=== PATIENT | male | born 1975 | race Hispanic/Latino ===

== ENCOUNTER 2025-05-20 13:34 | Inpatient (IN) | payer SELFPAY ==
[~2025-05-20] VITALS: Ht 167.6 cm; Wt 67.4 kg
[2025-05-20] VITALS (14 sets, daily range): BP systolic 105–141; BP diastolic 28–84; PULSE 54–68; RESP 11–20; TEMP 97.3–98; O2SAT 100
[2025-05-20] MEDS ORDERED: IOHEXOL 350 MG/ML 100ML INFUS..BTL IV ONE (13:43)
[2025-05-20] MEDS ORDERED: LIDOCAINE HCL 400MG/20ML VIAL ONE (13:43)
[2025-05-20] MEDS ORDERED: HEParin-NS 1,000 UNIT/500 ML 1,000 ML IV ONE (13:43)
[2025-05-20] MEDS ORDERED: NITROGLYCERIN 50MG VIAL ONE (13:44)
[2025-05-20] MEDS ORDERED: MIDAZOLAM HCL 1 MG/ML 2ML VIAL ONE (13:57)
--- NOTE | 2025-05-20 13:57 | ERN ---
General Chief Complaint: Chest Pain Stated Complaint: CP Time Seen by MD: 13:39 Source: patient, EMS History of Present Illness Initial Comments Patient is a 49-year-old gentleman sent over from [facility] due to STEMI. Per report patient has been having chest pain for a couple of hours was evaluated and was positive for EKG changes. Patient was sent over and taken straight to stores lab[facility]. Allergies: Coded Allergies: No Known Drug Allergies (Unverified Allergy, Unknown, 05/20/25) Past Medical History Past Medical History: No Pertinent History Past Surgical History: None ROS Dictation CONSTITUTIONAL: No chills, no fever, no weakness, no diaphoresis, no malaise. HEAD/FACE: No signs of trauma. EENT: No eye pain, no blurred vision, no tearing, no double vision, no ear pain, no ear discharge, no nose pain, no nasal congestion, no throat pain, no throat swelling, no mouth pain. RESPIRATORY: No cough, no orthopnea, no SOB, no stridor, no wheezing. CARDIOVASCULAR: No chest pain, no edema, no palpitations, no syncope. GASTROINTESTINAL/ABDOMINAL: No abdominal pain, no constipation, no diarrhea, no nausea, no vomiting. GENITOURINARY: No abnormal discharge, no dysuria, no frequent urination, no hematuria. No complaints of pain in the genitals. MUSCULOSKELETAL: No back pain, no gout, no joint pain, no joint swelling, no muscle pain, no muscle stiffness, no neck pain. INTEGUMENTARY: No change in color, no change in hair/nails, no dryness, no lesion, no lumps, no rash. NEUROLOGICAL/PSYCH: No anxiety, not depressed, no emotional problem, no headache, no numbness, no pre-existing deficit, no history of seizures, no tremors, no weakness. HEMATOLOGIC/LYMPHATIC: Not anemic, no history of blood clots, no apparent bleeding, no bruising, glands not swollen. All Systems Negative, Except as Noted. Physical Exam Physical Exam Dictation VITAL SIGNS: Reviewed. GENERAL APPEARANCE: Alert, oriented x3, no acute distress, obese. HEAD AND FACE: Non-traumatic. EYES: PERRL, pink conjunctivas, eyelid no trauma, anterior chamber clear. EARS: Pinnas intact and no signs of trauma or erythema. Ear canals clear and no discharge. TMs no erythema. NOSE: No discharge, no bleeding. OROPHARYNX: Mouth normal, teeth no caries, tongue pink. Pharynx clear, no erythema. Tonsils no exudates, no abscesses noted. Mucous membrane moist. NECK: Supple, non-tender, no thyromegaly, no masses, no JVD, no bruits. BREAST: Deferred. CHEST: No tenderness, no crepitus, no paradoxical movement, no retractions. LUNGS: Clear, well-ventilated, symmetric, no rales, no wheezing, no rhonchi, no stridor, good breath sounds bilaterally. HEART: Regular rate, regular rhythm, no murmur, no gallops. VASCULAR: No peripheral edema. ABDOMEN: Soft, positive bowel sounds, nondistended, no guarding, nontender, no rebound, no masses no hepatomegaly, no splenomegaly, no Whitaker's sign, no hernia s. RECTAL: Deferred. GENITAL: Deferred. NEUROLOGICAL: Normal speech, gross motor function intact, gross sensory function intact. MUSCULOSKELETAL: Neck nontender, full range of motion, back nontender, full range of motion. EXTREMITIES: Nontender, full range of motion. SKIN: Color pink, dry, no turgor, no rash, no lacerations, no abrasions, no contusions. LYMPHATICS: Deferred. MDM MDM: Differential diagnosis: STEMI, Rationale: Tests considered and ordered secondary to shared decision making include: labs, ECG and radiology Previous outside records reviewed: Old ER visits. Risk of complication and/or morbidity or mortality of patient management: None Medications-Per medication reconciliation Need for hospitalization: Patient does meet criteria for hospitalization. Need for emergency major/minor surgery: No There are no social concerns with this patient. Prescription drug management Prescriptions will include symptomatic care Patient's prior external medical records from other ER visits were reviewed by me as indicated. Prior testing and results from previous visits were reviewed. Prior tests were taken into account with medical decision making and resource utilization, independent historian/historians were used to obtain complete medical history. I independently interpreted the test that were performed, results were reviewed by me and considered findings on radiology if ordered. Medical management and examination interpretation discussions were had by me with other qualified healthcare professionals as indicated for the patient's care. Patient taken straight to stores laborer, HPI limited, patient will be admitted after stores lab[facility] under the care of hospitalist group. ED Course Orders Procedure Category Date Status Time Cbc With Differential LAB 05/20/25 Logged 13:40 Prothrombin Time With LAB 05/20/25 Logged INR 13:40 Chest 1vw RAD 05/20/25 Logged 13:40 12 Lead Ekg Tracing- EKG 05/20/25 Logged Technical 13:40 Magnesium LAB 05/20/25 Logged 13:40 Creatine Kinase, Total LAB 05/20/25 Logged 13:40 Troponin I High LAB 05/20/25 Logged Sensitivity 13:40 Urinalysis Profile LAB 05/20/25 Logged 13:40 Partial LAB 05/20/25 Logged Thromboplastin Time 13:40 Basic Metabolic Panel LAB 05/20/25 Logged 13:40 Lidocaine Hcl PHA 05/20/25 Complete 400mg/20ml (Lidocaine 13:43 Iohexol (Omnipaque) PHA 05/20/25 Complete 13:43 Heparin 10,000 PHA 05/20/25 Complete Unit/10ml (Heparin 13:43 Heparin-Ns 1,000 PHA 05/20/25 Complete Unit/500 Ml 13:43 Nitroglycerin 50mg PHA 05/20/25 Complete Vial (Tridil 50mg/10m 13:44 Ladies Suit Operator Procedure CATH 05/20/25 Logged Request Current Medications Medications (Trade) Dose Ordered Sig/Harriett Route PRN Reason Start Time Stop Time Status Last Admin Dose Admin Heparin Sodium (Porcine) (HEParin 10,000 UNIT/10ML) 10,000 unit STK-MED ONCE .ROUTE 05/20/25 13:43 05/20/25 13:43 DC Heparin Sodium/ Sodium Chloride 1,000 ml @ As Directed STK-MED ONCE IV 05/20/25 13:43 05/20/25 13:43 DC Iohexol (Omnipaque) 35,000 mg STK-MED ONCE IV 05/20/25 13:43 05/20/25 13:43 DC Lidocaine HCl (Lidocaine HCl 400mg/20ml) 20 ml STK-MED ONCE .ROUTE 05/20/25 13:43 05/20/25 13:43 DC Nitroglycerin (Tridil 50mg/ 10ml) 50 mg STK-MED ONCE .ROUTE 05/20/25 13:44 05/20/25 13:44 DC Vital Signs Date Time Temp Pulse Resp B/P (MAP) Pulse Ox O2 Delivery O2 Flow Rate FiO2 05/20/25 13:43 97.9 71 17 150/110 98 Room Air 0 DX & DISP Disposition: Inpatient Decision to Admit Time: 13:56 Departure Impression: Primary Impression: STEMI (ST elevation myocardial infarction) Condition: Stable JOSÉ ANTONIO WATKINS MD May 20, 2025 13:57
[2025-05-20] MEDS ORDERED: ATROPINE 1MG SYG IVP ONE (14:10)
[2025-05-20] MEDS ORDERED: EPTIFIBATIDE 2 MG/ML 10 ML VIAL IVP ONE ×2 (14:20→14:34)
[2025-05-20] MEDS ORDERED: EPTIFIBATIDE 75MG/100ML BOTTLE 100 ML IV ONE (14:20)
--- NOTE | 2025-05-20 14:44 | CONS ---
Cardiology Consult Note Attending X Ray Inspector: Dr. Lazarus Webster Consulting Physician: ED physician Date of Service: 05/20/2025 Reason for Consult: ACS-STEMI HPI: This is a 49y/o male with a past medical history of tobacco abuse (cigarettes and vaping) who presents with chest pain of 2 hours in duration. The symptoms began spontaneously, around 9:30AM and over the ensuing timeframe his symptoms were constant and progressively worsened. The pain was described as dull in quality, 3/10 in intensity, and was nonradiating. The symptoms were not exacerbated or alleviated by anything. Associated symptoms include diaphoresis. Pertinent negatives include headache, dizziness, syncope, palpitations, shortness of breath, PND, orthopnea, abdominal pain, nausea, vomiting, weight gain, lower extremity swelling, fever, or chills. The patient's progression of symptoms prompted him to seek a higher level of care at [facility], where an ECG identified ST elevation in the inferior leads, diagnostic for ACS-STEMI. Cardiology was consulted for treatment recommendations, and [place] was [place] [facility] [place] and so he go undergo an emergent [place]/coronary angiogram. PMH: Listed above PSH: None FH: Significant for HTN and DMII SH: Positive for tobacco abuse. Denies alcohol or illicit drug use. Allergies: Coded Allergies: No Known Drug Allergies (Unverified Allergy, Unknown, 05/20/25) Review of systems: General: As per the HPI HEENT: Denies changes in vision, earache or sore throat Neck: Denies pain or stiffness Cardio: As per the HPI Pulm: Denies SOB, coughing or wheezing GI: Denies abdominal pain, nausea, vomiting, diarrhea, or constipation. MSK: Denies decreased ROM or joint pain. Heme: Denies anemia, easy bruising, or bleeding. Neuro: Denies headache, dizziness, or syncope. Psyche: Denies anxiety, depression, or suicidal ideation. Physical Exam: Vital Signs Date Time Temp Pulse Resp B/P (MAP) Pulse Ox O2 Delivery O2 Flow Rate FiO2 05/20/25 13:43 97.9 71 17 150/110 98 Room Air 0 General: Alert and oriented. NAD HEENT: NC/AT. Oral mucosa is moist. Neck: No masses, JVD, or carotid bruits Lungs: NRD. SCM. B/L CTA. No obvious wheezing, rales or rhonchi. Cardio: Regular rate. Normal S1 and S2. +S4. PMI was not displaced. Abdomen: Soft. NT. ND. Normal active bowel sounds x 4 quadrants. Extremities: Diminished throughout. No edema, clubbing, or cyanosis. Neuro: CN II-XII were grossly intact. No focal deficits. Laboratory data 05/20/2025 at 12:11PM: WBC: 16.09 H/H: 16.1/47.3 Plt: 234 Na: 140 K: 4.1 Cl: 102 CO2: 27 BUN/Creat: 20/0.83 HS troponin I: 79 PT: 10.3 INR: 0.94 PTT: 24.4 Assessment: -ACS-STEMI -Leukocytosis -Tobacco abuse (cigarettes and vaping) Plan: 1. ACS-STEMI -ECG 05/20/2025t 12:37 PM: Sinus rhythm with ST elevation in leads II, III, aVF, V4, QTc: 367 ms, HR: 51 bpm -The patient presents with chest pain with associated diaphoresis of 2 hours in duration. -The above mentioned findings are diagnostic for ACS-STEMI. As a result, he was transferred from [facility] [place] [facility] [place] so he can undergo an emergent LHC/coronary angiogram with possible intervention. The risks and benefits of the procedure were explained to the patient and he wishes to proceed. -The patient was given aspirin 162.5 mg x 1, clopidogrel 300 mg x 1, and heparin 4000 units IV x 1 while at [facility]. -We will reassess the patient's hemodynamics post procedure in order to determine his candidacy for GDMT with BB therapy and ACEI/ARB therapy. -In the meantime, he will continue on aspirin 81 mg daily and atorvastatin 40 mg QHS. -In addition, we will obtain a 2D echocardiogram in order to assess the patient's systolic/diastolic function. -We will repeat a HS troponin I and ECG in the AM. Thank you for this interesting consult and allowing us to participate in the care of your patient. This case was seen and discussed with my Supervising Physician, Dr. Lazarus Webster, and the above mentioned plan was formulated and agreed upon. -Consult Note written by Caryn Cardenas, MSN, BOTTOM TURNER, AGACNP-BC CARYN CARDENAS NP May 20, 2025 14:44
[2025-05-20] MEDS ORDERED: HEParin-NS 1,000 UNIT/500 ML 500 ML IV ONE (14:49)
--- NOTE | 2025-05-20 15:58 | PRN ---
PROCEDURE NOTE Indications: ACS-STEMI Procedures: Coronary angiogram, PCI with balloon angioplasty, mechanical aspir ation thrombectomy (penumbra), IVUS assessment, and TRUNG placement in the proximal and mid RCA Introduction: After informed written consent was obtained, the patient was brought to the Catheterization Lab in the usual fasting state. Following sterile prep and drape, a time out was performed, then moderate sedation was administered, 1mg of Versed and 25mcg of Fentanyl, then 1% Lidocaine was infiltrated into the right femoral groin. Using a Modified Seldinger technique, a 6Fr Sheath was inserted into the right common femoral artery. While under fluoroscopic guidance, diagnostic coronary catheters were advanced over a wire into the central circulation where they were aspirated, flushed and placed to pressure monitoring, once the wire was removed. Coronary Angio: The left and right coronary arteries were engaged with appropriate catheters and angiography was performed under continuous pressure monitoring. Cardiac Findings: Right dominant system LM: Medium caliber vessel with mild luminal irregularities. The vessel bifurcates into the LAD and LCX. LAD: Medium caliber vessel with diffuse 20% stenosis in the proximal and mid LAD. The rest of the vessel has mild luminal irregularities. Diagonal 1: Small caliber vessel with mild luminal irregularities LCx: Medium caliber vessel with mild luminal irregularities. Ramus: Medium caliber vessel with 20% stenosis in the proximal ramus OM1: Small caliber vessel with mild luminal irregularities RCA: Large caliber vessel with 30% stenosis in the proximal RCA and 100% thrombotic occlusion in the mid RCA. STEVE 0 blood flow distally RPDA: 100% thrombotic occlusion RPLV: 100% thrombotic occlusion Medications given: Versed 1mg, Fentanyl 25mcg, nitroglycerin 200 mcg IA x 1 dose, heparin 75 units/kg x1 dose, Integrilin IV bolus x2, followed by continuous IV drip, ticagrelor 180 mg x 1 dose Coronary Intervention: Guide catheter: JR4 Guidewire: 0.014 runthrough guidewire After you need imaging findings the decision was made to intervene on the RCA. The JR4 guide catheter and 0.014 run-through guidewire were advanced to the ostium of the RCA. We then advanced the 0.014 run-through guidewire across the area stenosis and into the distal RPDA. We then performed balloon angioplasty (2.5 x 15 mm) in the proximal and mid RCA. We then performed mechanical aspiration thrombectomy (penumbra cat rx) in the proximal, mid, and distal RCA. We then administered Integrilin IV bolus x2, followed by IV drip. We then performed IVUS assessment of the RCA which determined the lumen size. We then successfully deployed TRUNG in the proximal and mid RCA (Xience león point 4.0 x 15 mm, 4.0 x 15 mm, 4.0 x 38 mm). The stents were post dilated using an NC 4.0 x 15 mm balloon achieving optimal results. Repeat angiography then revealed widely patent stents in the proximal and mid RCA, and STEVE 3 blood flow distally. The 0.014 runthrough guidewire and JR4 guide catheter were then removed without issue. Complications: None Conscious Sedation Monitoring: Under my direct order and supervision, medication for moderate conscious sed ation was administered by the nursing staff and the patients level of consciousness and physiological status was monitored by an independent trained nurse. Closure of Access Site: After the case completed the sheath was pulled and a 6Fr Angioseal was deployed in the right common femoral artery without complication. Conclusion: 1. ACS-STEMI, 100% thrombotic occlusion in the mid RCA status post successful treatment with balloon angioplasty, mechanical aspiration thrombectomy, administration of Integrilin, and TRUNG placement (Xience león point 4.0 x 15 mm, 4.0 x 15 mm, 4.0 x 38 mm) in the proximal and mid RCA. The stents were post dilated achieving optimal results. 2. 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 Continue goal-directed medical therapy 2. Groin precautions. 3. 4 hours of bed rest. 4. Start NS at 100 mL/hour x3 hours. 5. Restart Integrilin IV drip in 2 hours, 5:30 p.m., as long as her right groin is soft, and free of bruising, bleeding, and/or hematoma formation. 6. Please order an echocardiogram 7. Repeat an ECG in the a.m. 8. Repeat an troponin level in the a.m. 9. Start aspirin 81 mg daily and ticagrelor 90 mg BID. 10. Continue statin therapy WARREN GUEVARA MD May 20, 2025 15:57
--- NOTE | 2025-05-20 16:50 | HP ---
[facility] HISTORY AND PHYSICAL Date of Service: May 20, 2025 Time of Service: 16:49 HISTORY OF PRESENT ILLNESS: 49-year-old male with past medical history of tobacco use who presented to the hospital secondary to chest pain. Patient initially presented to [facility] secondary to chest pain. His pain started around 930 in the morning. He describes the pain as dull in nature and was nonradiating. He had associated diaphoresis in the pain. He denied any fever, chills, shortness of breath, abdominal pain, nausea, vomiting. Denied any cough, sputum production. Denied any orthopnea, PND, dysuria. Patient currently does not take any medications at home. He does smoke less than a pack a day for at least 30 years. Patient underwent a EKG which showed ST-elevation in the inferior leads. He was given aspirin, Plavix, and was started on heparin drip and was thereafter transferred to [facility] for emergent heart catheterization. The patient underwent left heart catheterization by Dr. Webster and was found have 100% thrombotic occlusion in the mid RCA and underwent balloon angioplasty, mechanical aspiration thrombectomy, administration of Integrilin with stent placement in the proximal and mid RCA. 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 Labs from [facility] showed white count of 16.09, hemoglobin was 16.1, platelet count was 234k, sodium was 140, potassium was 4.1, chloride was 102, bicarb was 27, creatinine was 0.83, glucose was 180, troponin was 79 REVIEW OF SYSTEMS CONSTITUTIONAL: Denies fevers, chills, or night sweats. No unintentional weight loss reported. NEUROLOGICAL: Denies headache, amaurosis fugax, motor weakness, sensory deficit, vertigo/spinning sensation, gait abnormalities, or tremors. ENT: No hearing loss, otalgia, otorrhea, rhinitis, rhinorrhea, hoarseness, or sore throat. CARDIOVASCULAR: Positive for chest pain. Denied any orthopnea, PND , shortness of breath PULMONARY: Denies any shortness of breath, cough, phlegm/sputum, hemoptysis, pleuritic chest pain. SLEEP: Denies morning headaches, daytime somnolence or napping. Denies difficulty falling asleep, staying asleep, waking from sleep. Denies knowledge of snoring. GASTROINTESTINAL: Denies any type of dysphagia to either liquids or solids. Denies nausea, vomiting, pyrosis, early satiety, abdominal pain, diarrhea, constipation, or changes in stool consistency or caliber. Denies coffee-ground emesis, hematemesis, hematochezia, or melanotic stools. GENITOURINARY: Denies frequency, urgency, nocturia, hematuria or incontinence (Storage/Irritative symptoms.) Low urinary stream, straining to void, urinary intermittency or hesitancy, splitting of the voiding stream, terminal dribbling. ENDOCRINOLOGIC: Denies polyuria, polydipsia, polyphagia or heat/cold intolerances. HEMATOLOGIC: Denies thrombophilia/previous clots, or coagulopathy/bleeding disorders. ONCOLOGIC: Denies personal history of malignancy. DERMATOLOGIC: Denies rashes or pruritus. PSYCHIATRIC: Denies any suicidal or homicidal ideation. Denies hallucinations. PAST MEDICAL HISTORY: No significant past history PAST SURGICAL HISTORY: Denied any previous surgical history PAST SOCIAL HISTORY: History of smoking. He smokes less than a pack a day for at least 30 years. Denied any alcohol denied any drug use FAMILY HISTORY: Denied any pertinent family history Coded Allergies: No Known Drug Allergies (Unverified Allergy, Unknown, 05/20/25) PHYSICAL EXAM GENERAL APPEARANCE: The patient is awake, alert, and oriented, in no acute cardiopulmonary distress. NEUROLOGICAL: Cranial nerves II-XII grossly intact. Motor is 5/5 in bilateral upper and lower extremities proximal to distal. No sensory deficits. HEENT: Face is symmetric. Pupils are equal and reactive. Extraocular movements are intact. NECK: Supple. No JVD. No thyromegaly. No submental, submandibular, pre- /postauricular, occipital or supraclavicular lymphadenopathy. CHEST: Normal chest expansion. No Telemetry. LUNGS: Absence of any rales, rhonchi or any wheezing. CARDIOVASCULAR: Regular. S1 and S2 normal. No appreciable rubs, murmurs or gallops. ABDOMEN: Soft, nontender, and nondistended. There is no rebound, voluntary guarding, or rigidity. : Deferred. No Kennedy. EXTREMITIES: Non-edematous and not cyanotic. No clubbing. Good capillary refill. SKIN: No skin breakdown. Vital Sign (Last 24 Hours) 05/20/25 05/20/25 16:00 16:30 Temp 97.3 Pulse 57 Resp 20 B/P (MAP) 117/76 Pulse Ox 100 O2 Delivery Room Air O2 Flow Rate 0 FiO2 21 LABS: Current Medications Medications (Trade) Dose Ordered Sig/Harriett Route PRN Reason Start Time Stop Time Status Last Admin Dose Admin Aspirin (Aspirin 81mg Ec Tab) 81 mg DAILY PO 05/21/25 09:00 06/20/25 08:59 Atorvastatin Calcium (LIPItor 40MG) 40 mg HS PO 05/20/25 21:00 06/19/25 20:59 Eptifibatide 100 ml @ 11 mls/hr XCHG SIGX IV 05/20/25 17:45 05/20/25 15:59 DC Eptifibatide 100 ml @ 0 mls/hr PROTOCOL IV 05/20/25 17:45 05/23/25 17:44 Famotidine (Pepcid 20mg Vial) 20 mg BID IV 05/20/25 21:00 06/19/25 20:59 Hydralazine HCl (APRESOLine 20MG INJ) 10 mg Q6H PRN IV ADMINISTER FOR SBP > 180 05/20/25 17:00 06/19/25 16:59 UNV Magnesium Sulfate 50 ml @ 0 mls/hr PROTOCOL PRN IV hypomagnesemia 05/20/25 17:00 06/19/25 16:59 UNV Nicotine (Nicoderm) 7 mg DAILY TD 05/21/25 09:00 06/20/25 08:59 UNV Potassium Chloride 100 ml @ 100 mls/hr AD PRN IV POTASSIUM PROTOCOL 05/20/25 17:00 06/19/25 16:59 UNV Potassium Chloride (K-Dur/Klor-Con 20meq) 20 meq AD PRN PO POTASSIUM PROTOCOL 05/20/25 17:00 06/19/25 16:59 UNV Potassium Chloride (KCl 10% Elixir 20meq/15ml) 20 meq AD PRN PO POTASSIUM PROTOCOL 05/20/25 17:00 06/19/25 16:59 UNV Sodium Chloride 1,000 ml @ 100 mls/hr Q10H IV 05/20/25 15:30 05/20/25 19:29 Ticagrelor (BRILinta) 90 mg BID PO 05/20/25 21:00 06/19/25 20:59 DIAGNOSTICS / RADIOLOGY: [ ] ASSESSMENT: STEMI status post heart catheterization with 100% thrombotic occlusion in the mid RCA and underwent balloon angioplasty, mechanical aspiration thrombectomy, administration of Integrilin with stent placement in the proximal and mid RCA. 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 Hyperlipidemia Tobacco abuse Leukocytosis likely in setting of STEMI PLAN: - patient to continue with admission in ICU -in reference to STEMI. The patient will continue on aspirin Brilinta. Cardiology has been consulted, appreciate recommendations. Obtain echocardiogram tomorrow -patient was counseled regarding smoking cessation. Patient will be started on nicotine patch -check CBC, TSH, BNP, A1c -obtain a chest x-ray for tomorrow -we will closely monitor for any fevers. If febrile, patient will be started on antibiotics -further orders per hospitalization course Advanced Care Planning Which of the following were discussed: Hospice care: Yes __ No _x_ Therapeutic options: Yes __ No __ Advance directives: Yes __ No __ Other discussions: Discussed with who?: patient (Patient, family or surrogates) Voluntary nature of this service was explained to the patient? Yes _x_ No __ Amount of time spent: 25 minutes KELLY Werner MD, MD May 20, 2025 16:50
[2025-05-20] MEDS ORDERED: PoTASSium chl 10% ELIXIR 20MEQ 20 MEQ/15 ML UDCUP PO PRN (17:00)
[2025-05-20 17:28] LABS: IMMATURE GRANULOCYTE ABSOLUTE 0.04 K/uL (0-1); NUCLEATED RED BLOOD CELLS 0.0 % (0.0-0.19); PLATELET COUNT (AUTO) 183 K/uL (130-400); RED BLOOD CELL COUNT(AUTO) 4.89 MIL/uL (4.50-6.20); RED CELL DISTRIBUTION WIDTH 13.4 % (11.0-15.5); WHITE BLOOD COUNT (AUTO) 13.7 K/uL (4.8-10.8)
[2025-05-20] MEDS: 0.9%NACL 1000ML 1,000 ML IV SCH (17:43)
[2025-05-20] MEDS ORDERED: EPTIFIBATIDE 75MG/100ML BOTTLE 100 ML IV SCH (17:45)
[2025-05-20] MEDS: EPTIFIBATIDE 75MG/100ML BOTTLE 100 ML IV SCH (17:47)
[2025-05-20 17:49] LABS: INR 0.98 (0.85-1.15)
[2025-05-20 18:29] LABS: CREATININE 0.7 mg/dL (0.5-1.3); GLOMERULAR FILTR. RATE CALC 112.0 mL/min (>90); GLUCOSE,RANDOM 115.0 mg/dL (70-105); SODIUM SERUM 137.0 mmol/L (136-145); UREA NITROGEN, BLOOD 15.0 mg/dL (7-18)
--- NOTE | 2025-05-20 18:33 | CONS ---
[facility] CONSULTATION NOTE Date Patient Seen: May 20, 2025 Time of Visit: 2014 Supervising Physician: [Dr. Brendon Rivera] Reason for Consultation: ICU consult ] Primary Care Physician: [None ] Outpatient Specialists: [ ] Inpatient Consults: [ Dr. Webster-cardiology, [facility]-ICU] PROBLEM LIST: STEMI-POA; inferior MS s/p balloon angioplasty with TRUNG placement by Dr. Webster 05/20/2025-not POA 100% thrombotic occlusion in the mid RCA status post successful treatment with balloon angioplasty, mechanical aspiration thrombectomy, administration of Integrilin, and TRUNG placement (Xience león point 4.0 x 15 mm, 4.0 x 15 mm, 4.0 x 38 mm) in the proximal and mid RCA. The stents were post dilated achieving optimal results. 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 Currently the dressing is CDI -Smoking cessation education >5 minutes; to start on nicotine patch -Counseling on lifestyle modification -Cardiac rehab in am -Obtain 2Decho in am -ACS risk stratification, lipid panel pending; TSH (0.98), HgA1c (5.7) HPI: [Patient is a robust 49-year-old male with PMH significant for chronic nicotine disorder and marijuana vaping who was transferred from [facility] concerning STEMI consistent with inferior MS and was given loading dose of ASA, Plavix and IV heparin at [facility]. [place] [facility] [place] under the service of Dr. Webster. According to the patient, he started feeling a severe chest pain on the midsternal region that came in around 10:00 a.m.. He was not able to make it to his job went home and told his as he began feeling profuse diaphoresis. His brought him to [facility] where he was found to have an EKG showing ST elevation in lead two, three, AVF and reciprocal depressions in V1 through V3. Patient is status post left heart catheterization, balloon angioplasty with TRUNG placement in the proximal and mid RCA with impression of 100% occlusion in the mid RCA. Physical assessment was unrevealing with stable hemodynamics and lungs CTA. Right femoral puncture site with dressing CDI and palpable pulses on right DP/PT. Of note, patient claims he is not taking any maintenance meds as he does not follow-up with any PCP. Goals of care were discussed with the patient verbalizing understanding and agreement. PAST MEDICAL HX: see above PAST SURGICAL HX: noncontributory SOCIAL HISTORY: No tobacco, ETOH, or illicit drug use Coded Allergies: No Known Drug Allergies (Unverified Allergy, Unknown, 05/20/25) REVIEW OF SYSTEMS: 12 point ROS reviewed with patient. Pertinent positives mentioned above. Otherwise negative. PHYSICAL EXAM: GENERAL: alert, awake oriented x 3, talkative HEENT: EOMI, Sclera non icteric, moist mucosa NECK: Supple, no JVD, trachea midline LUNGS: Clear breath sounds bilaterally. No wheezes HEART: Regular rate and rhythm. Normal S1 and S2, without murmurs ABD: Abdomen soft, nontender. Bowel sounds present EXT: No clubbing cyanosis or edema; right femoral puncture site with dressing CDI and palpable pulses on right DP/PT NEURO: Alert and oriented to person, follows commands Vital Signs (last 8hr) Date Time Temp Pulse Resp B/P (MAP) Pulse Ox O2 Delivery O2 Flow Rate FiO2 05/20/25 18:00 54 20 109/57 100 Room Air 05/20/25 17:45 58 20 105/62 100 Room Air 05/20/25 17:15 60 20 124/69 100 Room Air 05/20/25 16:45 56 20 115/71 100 Room Air 05/20/25 16:30 57 20 117/76 100 Room Air 05/20/25 16:15 62 20 141/74 100 Room Air 05/20/25 16:00 100 Room Air* 0 21 05/20/25 16:00 97.3 68 20 136/65 100 Room Air 05/20/25 13:47 97.9 71 17 150/110 98 Room Air* 0 21 05/20/25 13:43 97.9 71 17 150/110 98 Room Air 0 LABS: Hematology Labs: Test 05/20/25 17:15 Range/Units White Blood Count 13.7 H 4.8-10.8 K/uL Red Blood Count 4.89 4.50-6.20 MIL/uL Hemoglobin 15.5 14.0-18.0 g/dL Hematocrit 45.6 42-54 % Mean Corpuscular Volume 93.3 79-99 fL Mean Corpuscular Hemoglobin 31.7 27.0-33.0 pg Mean Corpuscular Hemoglobin Concent 34.0 32.0-36.0 g/dL Red Cell Distribution Width 13.4 11.0-15.5 % Platelet Count 183 130-400 K/uL Mean Platelet Volume 10.4 7.5-10.5 fL Immature Granulocyte % (Auto) 0.3 0-1 % Neutrophils (%) (Auto) 88.3 H 40.0-77.0 % Lymphocytes (%) (Auto) 7.7 L 21.0-51.0 % Monocytes (%) (Auto) 3.4 3.0-13.0 % Eosinophils (%) (Auto) 0.1 0.0-8.0 % Basophils (%) (Auto) 0.2 0.0-5.0 % Neutrophils # (Auto) 12.1 H 1.8-7.7 K/uL Lymphocytes # (Auto) 1.1 1.0-4.8 K/uL Monocytes # (Auto) 0.5 0.1-1.0 K/uL Eosinophils # (Auto) 0.02 0.00-0.70 K/uL Basophils # (Auto) 0.03 0.00-0.20 K/uL Absolute Immature Granulocyte (auto 0.04 0-1 K/uL Nucleated Red Blood Cells 0.0 0.0-0.19 % Chemistry Labs: Test 05/20/25 17:15 Range/Units Sodium Level 137 136-145 mmol/L Potassium Level 4.1 3.5-5.1 mmol/L Chloride Level 104 101-111 mmol/L Carbon Dioxide Level 22 21-32 mmol/L Blood Urea Nitrogen 15 7-18 mg/dL Creatinine 0.7 0.5-1.3 mg/dL Glomerular Filtration Rate Calc 112 >90 mL/min Random Glucose 115 H 70-105 mg/dL Hemoglobin A1c 5.7 4.0-6.0 % Estimated Average Glucose (eAG) 117 70-126 mg/dL Total Calcium 8.9 8.5-10.1 mg/dL Thyroid Stimulating Hormone (TSH) 0.98 0.36-3.74 uIU/mL Coagulation Labs: Test 05/20/25 17:15 Range/Units Prothrombin Time 10.4 9.6-11.6 SEC Prothromb Time International Ratio 0.98 0.85-1.15 Activated Partial Thromboplast Time 41.7 H 26.3-35.5 SEC DIAGNOSTICS / RADIOLOGY RESULTS: [ ] PLAN NEURO: Minimize central acting medications as possible. Fall Precautions. Well lighted room through the day and minimize interruptions through the night to prevent acute delirium. PULMONARY: Supplemental 02 as needed Titrate Fio2 to keep Spo2 > or = 90% DuoNebs and CPT as needed IS hourly while awake for pulmonary hygiene Out of bed to chair as tolerated CARDIOVASCULAR: Follow hemodynamics. Titrate vasopressor to keep MAP >65 or systolic blood pressure >95mmHg DRIPS: [Integrilin ] LINES: [PIV] GI & NUTRITION: Continue nutritional support Aspirations precautions Prokinetic agents and laxatives as needed KIDNEYS & ELECTROLYTES: Strict monitoring of intake and output Daily weights Avoid nephrotoxic agents Monitor electrolytes and replace as needed Goal urine output of 30mL/hr or 0.5mL/kg/hr Urine output: [ ] Fluid Balance: [ ] ENDOCRINE: Maintain blood glucose between 100-180 at all times. Insulin sliding scale for blood glucose management INFECTIOUS DISEASE: Trend temperature. Dimas-culture if febrile. Micro: [ ] Antibiotics: [ ] HEMATOLOGY & COAGULATION: Monitor H&H. Keep Hgb > 7 Transfuse 1 unit of PRBC for Hgb < 7 Transfuse 1 pack of platelets of platelets < 20, 000 Watch for any signs and symptoms of bleeding SKIN: Pressure ulcer prevention per facility protocol Rehab: PT/OT Prophylaxis: GI: [Pepcid] DVT: [SCD, Brilinta ] Code Status: Full Resuscitation Disposition: [ICU ] Other: Total patient care time 35 minutes WARREN DAN May 20, 2025 18:33
[2025-05-20] MEDS: FAMOTIDINE 20MG VIAL IV SCH (21:09)
[2025-05-21] VITALS (15 sets, daily range): BP systolic 111–139; BP diastolic 62–83; PULSE 56–86; RESP 15–19; TEMP 97.7–98.5; O2SAT 98–100
[2025-05-21 04:26] LABS: NUCLEATED RED BLOOD CELLS 0.0 % (0.0-0.19); PLATELET COUNT (AUTO) 197.0 K/uL (130-400); RED BLOOD CELL COUNT(AUTO) 4.52 MIL/uL (4.50-6.20); RED CELL DISTRIBUTION WIDTH 13.4 % (11.0-15.5); WHITE BLOOD COUNT (AUTO) 14.6 K/uL (4.8-10.8)
[2025-05-21 04:51] LABS: ASPARTATE AMINOTRANSFERASE 359.0 U/L (10-37); CREATININE 0.5 mg/dL (0.5-1.3); GLOMERULAR FILTR. RATE CALC 123.0 mL/min (>90); GLUCOSE,RANDOM 115.0 mg/dL (70-105); LDL DIRECT 100.0 mg/dL (0-99); SODIUM SERUM 141.0 mmol/L (136-145); TOTAL PROTEIN, SERUM 6.4 g/dL (6.0-8.3); UREA NITROGEN, BLOOD 11.0 mg/dL (7-18)
--- NOTE | 2025-05-21 07:06 | EKG ---
[facility] Test Date: 2025-05-21 Test Time: 06:45:36 Pat Name: ALAINA NEVAREZ Department: [facility] Room: 216 1 Gender: M Renal Dialysis Rn: ade : 1975 Requested By: CARYN CARDENAS Order Number: [id number] Reading MD: Carrie Ann Measurements Intervals [place] Rate: 57 P: 12 MA: 117 QRS: 12 QRSD: 87 T: 87 QT: 417 QTc: 407 Interpretive Statements Sinus rhythm Inferior infarct, acute (RCA) No previous ECG available for comparison Electronically Signed On 05-21-2025 14:02:28 CDT by Carrie Ann Please click the below link to view image of tracing.
[2025-05-21] MEDS: MAGNESIUM 2GM PREMIX 50ML 50 ML IV PRN (08:30)
[2025-05-21] MEDS: PoTASSium chloRIDE 20MEQ ER 20 MEQ ERTAB PO PRN (08:31)
[2025-05-21] MEDS: NICOTINE 7 MG/ 24 HR PATCH TD SCH (08:32)
[2025-05-21] MEDS: ASPIRIN 81 MG EC TAB PO SCH (08:32)
--- NOTE | 2025-05-21 09:08 | PN ---
[facility] PROGRESS NOTE Date of Service: May 21, 2025 Time of Service: 09:00 SUBJECTIVE: [ ] S/p coronary angiogram, PCI with balloon angioplasty, mechanical aspiration thrombectomy, IVUS assessment, and TRUNG placement in the proximal and mid RCA by Dr. Webster 05/20/2505/21 Today on bedside evaluation patient was found awake alert and oriented x 3. The power chart reviewed, vital signs, laboratory tests, imaging test and medications have been reviewed. Vital signs are stable, white count at 14.6, BMP is stable. AST at 359. 2D echo showing low-normal systolic function at 50- 55%. REVIEW OF SYSTEMS CONSTITUTIONAL: Denies fevers, chills, or night sweats. No unintentional weight loss reported. NEUROLOGICAL: Denies headache, amaurosis fugax, motor weakness, sensory deficit, vertigo/spinning sensation, gait abnormalities, or tremors. ENT: No hearing loss, otalgia, otorrhea, rhinitis, rhinorrhea, hoarseness, or sore throat. CARDIOVASCULAR: Positive for chest pain. Denied any orthopnea, PND , shortness of breath PULMONARY: Denies any shortness of breath, cough, phlegm/sputum, hemoptysis, pleuritic chest pain. SLEEP: Denies morning headaches, daytime somnolence or napping. Denies difficulty falling asleep, staying asleep, waking from sleep. Denies knowledge of snoring. GASTROINTESTINAL: Denies any type of dysphagia to either liquids or solids. De nies nausea, vomiting, pyrosis, early satiety, abdominal pain, diarrhea, constipation, or changes in stool consistency or caliber. Denies coffee-ground emesis, hematemesis, hematochezia, or melanotic stools. GENITOURINARY: Denies frequency, urgency, nocturia, hematuria or incontinence (Storage/Irritative symptoms.) Low urinary stream, straining to void, urinary intermittency or hesitancy, splitting of the voiding stream, terminal dribbling. ENDOCRINOLOGIC: Denies polyuria, polydipsia, polyphagia or heat/cold intolerances. HEMATOLOGIC: Denies thrombophilia/previous clots, or coagulopathy/bleeding disorders. ONCOLOGIC: Denies personal history of malignancy. DERMATOLOGIC: Denies rashes or pruritus. PSYCHIATRIC: Denies any suicidal or homicidal ideation. Denies hallucinations. PHYSICAL EXAM GENERAL APPEARANCE: The patient is awake, alert, and oriented, in no acute cardiopulmonary distress. NEUROLOGICAL: Cranial nerves II-XII grossly intact. Motor is 5/5 in bilateral upper and lower extremities proximal to distal. No sensory deficits. HEENT: Face is symmetric. Pupils are equal and reactive. Extraocular movements are intact. NECK: Supple. No JVD. No thyromegaly. No submental, submandibular, pre- /postauricular, occipital or supraclavicular lymphadenopathy. CHEST: Normal chest expansion. No Telemetry. LUNGS: Absence of any rales, rhonchi or any wheezing. CARDIOVASCULAR: Regular. S1 and S2 normal. No appreciable rubs, murmurs or gallops. ABDOMEN: Soft, nontender, and nondistended. There is no rebound, voluntary guarding, or rigidity. : Deferred. No Kennedy. EXTREMITIES: Non-edematous and not cyanotic. No clubbing. Good capillary refill. SKIN: No skin breakdown. Vital Signs (last 8hr) Date Time Temp Pulse Resp B/P (MAP) Pulse Ox O2 Delivery O2 Flow Rate FiO2 05/21/25 03:57 98.4 56 17 129/79 99 05/21/25 02:57 56 16 139/82 100 05/21/25 01:57 58 128/82 99 LABS: Laboratory: Test 05/21/25 03:57 05/20/25 17:15 Range/Units White Blood Count 14.6 H 4.8-10.8 K/uL Red Blood Count 4.52 4.50-6.20 MIL/uL Hemoglobin 14.5 14.0-18.0 g/dL Hematocrit 41.2 L 42-54 % Mean Corpuscular Volume 91.2 79-99 fL Mean Corpuscular Hemoglobin 32.1 27.0-33.0 pg Mean Corpuscular Hemoglobin Concent 35.2 32.0-36.0 g/dL Red Cell Distribution Width 13.4 11.0-15.5 % Platelet Count 197 130-400 K/uL Mean Platelet Volume 10.7 H 7.5-10.5 fL Nucleated Red Blood Cells 0.0 0.0-0.19 % Sodium Level 141 136-145 mmol/L Potassium Level 3.8 3.5-5.1 mmol/L Chloride Level 105 101-111 mmol/L Carbon Dioxide Level 23 21-32 mmol/L Blood Urea Nitrogen 11 7-18 mg/dL Creatinine 0.5 0.5-1.3 mg/dL Glomerular Filtration Rate Calc 123 >90 mL/min Random Glucose 115 H 70-105 mg/dL Total Calcium 8.3 L 8.5-10.1 mg/dL Magnesium Level 1.60 L 1.80-2.40 mg/dL Total Bilirubin 0.7 0.2-1.0 mg/dL Aspartate Amino Transf (AST/SGOT) 359 H 10-37 U/L Alanine Aminotransferase (ALT/SGPT) 68 12-78 U/L Alkaline Phosphatase 62 50-136 U/L Troponin I High Sensitivity 27259 *H 4-75 ng/L Total Protein 6.4 6.0-8.3 g/dL Albumin 3.4 L 3.5-5.0 g/dL Triglycerides Level 65 30-200 mg/dL Cholesterol Level 155 <200 mg/dL LDL Cholesterol 100 H 0-99 mg/dL HDL Cholesterol 47 29-71 mg/dL Thyroid Stimulating Hormone (TSH) 1.80 # 0.36-3.74 uIU/mL Immature Granulocyte % (Auto) 0.3 0-1 % Neutrophils (%) (Auto) 88.3 H 40.0-77.0 % Lymphocytes (%) (Auto) 7.7 L 21.0-51.0 % Monocytes (%) (Auto) 3.4 3.0-13.0 % Eosinophils (%) (Auto) 0.1 0.0-8.0 % Basophils (%) (Auto) 0.2 0.0-5.0 % Neutrophils # (Auto) 12.1 H 1.8-7.7 K/uL Lymphocytes # (Auto) 1.1 1.0-4.8 K/uL Monocytes # (Auto) 0.5 0.1-1.0 K/uL Eosinophils # (Auto) 0.02 0.00-0.70 K/uL Basophils # (Auto) 0.03 0.00-0.20 K/uL Absolute Immature Granulocyte (auto 0.04 0-1 K/uL White Cell Morphology Comment See comments Prothrombin Time 10.4 9.6-11.6 SEC Prothromb Time International Ratio 0.98 0.85-1.15 Activated Partial Thromboplast Time 41.7 H 26.3-35.5 SEC Hemoglobin A1c 5.7 4.0-6.0 % Estimated Average Glucose (eAG) 117 70-126 mg/dL Current Medications Medications (Trade) Dose Ordered Sig/Harriett Route PRN Reason Start Time Stop Time Status Last Admin Dose Admin Aspirin (Aspirin 81mg Ec Tab) 81 mg DAILY PO 05/21/25 09:00 06/20/25 08:59 05/21/25 08:32 81 MG Atorvastatin Calcium (LIPItor 40MG) 40 mg HS PO 05/20/25 21:00 06/19/25 20:59 05/20/25 21:09 40 MG Eptifibatide 100 ml @ 11 mls/hr XCHG SIGX IV 05/20/25 17:45 05/20/25 15:59 DC Eptifibatide 100 ml @ 0 mls/hr PROTOCOL IV 05/20/25 17:45 05/23/25 17:44 05/21/25 07:04 10 MLS/HR Famotidine (Pepcid 20mg Vial) 20 mg BID IV 05/20/25 21:00 06/19/25 20:59 05/21/25 08:32 20 MG Hydralazine HCl (APRESOLine 20MG INJ) 10 mg Q6H PRN IV ADMINISTER FOR SBP > 180 05/20/25 17:00 06/19/25 16:59 Magnesium Sulfate 50 ml @ 0 mls/hr PROTOCOL PRN IV hypomagnesemia 05/20/25 17:00 06/19/25 16:59 05/21/25 08:30 25 MLS/HR Nicotine (Nicoderm) 7 mg DAILY TD 05/21/25 09:00 06/20/25 08:59 05/21/25 08:32 7 MG Potassium Chloride 100 ml @ 100 mls/hr AD PRN IV POTASSIUM PROTOCOL 05/20/25 17:00 06/19/25 16:59 Potassium Chloride (K-Dur/Klor-Con 20meq) 20 meq AD PRN PO POTASSIUM PROTOCOL 05/20/25 17:00 06/19/25 16:59 05/21/25 08:31 20 MEQ Potassium Chloride (KCl 10% Elixir 20meq/15ml) 20 meq AD PRN PO POTASSIUM PROTOCOL 05/20/25 17:00 06/19/25 16:59 Sodium Chloride 1,000 ml @ 100 mls/hr Q10H IV 05/20/25 15:30 05/20/25 19:29 DC 05/20/25 17:43 100 MLS/HR Ticagrelor (BRILinta) 90 mg BID PO 05/20/25 21:00 06/19/25 20:59 05/21/25 08:32 90 MG DIAGNOSTICS / RADIOLOGY: [ ] ASSESSMENT: STEMI status post heart catheterization with 100% thrombotic occlusion in the mid RCA and underwent balloon angioplasty, mechanical aspiration thrombectomy, administration of Integrilin with stent placement in the proximal and mid RCA. 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 Hyperlipidemia Tobacco abuse Leukocytosis likely in setting of STEMI PLAN: -patient to continue with admission in ICU, currently in room 216 -in reference to STEMI. continue on aspirin and Brilinta. -continue Toprol 12.5 mg p.o. daily -continue prasugrel 10 mg p.o. daily -Continue aspirin 81 mg p.o. daily -Continue Lipitor 40 mg p.o. at bedtime -reviewed echocardiogram -patient was counseled regarding smoking cessation. Patient will be started on nicotine patch -check CBC, TSH, BNP, A1c -Pending chest x-ray -we will closely monitor for any fevers. If febrile, patient will be started on antibiotics -further orders per hospitalization course -Continue current medical therapy -following cardiology's recommendations. -PRN Treatment - Add when necessary meds for nausea, vomiting, pain, constipation, insomnia. -DVT/GI prophylaxis- Continue Lovenox and famotidine at current doses. -Full CODE STATUS This document was generated in part using voice recognition software, occasional wrong word or sound alike substitutions may have occurred due to the inherent limitations of voice recognition software. Read the chart carefully and recognize using context, where the substitutions have occurred. Although every effort was made to edit the content, personal development coach and typing errors may occur This case was discussed with Dr. Robins and above plan was formulated ATTESTATION BY PHYSICIAN I have seen and examined the patient. I reviewed the documentation, medical decision making, and treatment plan as noted by the mid-level provider above. I agree with the findings and plan of care. Asha Robins MD, MARCELO O FINAL ARMATURE TESTER May 21, 2025 09:08
--- NOTE | 2025-05-21 10:32 | PN ---
Cardiology Progress Note Date of Service: 05/21/2025 Attending Information Resources Manager: Dr. Lazarus Webster Reason for Consult: ACS-STEMI Problem List: -ACS-STEMI: Culprit lesion: 100% thrombotic occlusion in the mid RCA s/p successful PCI with PTCA, mechanical aspiration thrombectomy, and overlapping TRUNG placement (XSP 4.0x15 mm, 4.0x15 mm, 4.0x38 mm) in the proximal-mid RCA done on 05/20/2025 -Residual nonobstructive CAD (LAD, Ramus) identified on C/coronary angiogram done on 05/20/2025 -Intraprocedural NSVT, frequent PVCs, and junctional bradycardia, resolved post PCI -Leukocytosis -Tobacco abuse (cigarettes and vaping) Subjective: This is a 49y/o male who was seen and evaluated in the ICU today. Vitals/Labs Vital Signs Date Time Temp Pulse Resp B/P (MAP) Pulse Ox O2 Delivery O2 Flow Rate FiO2 05/21/25 09:00 70 15 133/78 99 Room Air 05/21/25 07:00 97.7 05/20/25 16:00 0 21 General: Awake and alert x 3. No acute distress. HEENT: Normocephalic, atraumatic. EOMI. Oral mucosa was moist. Neck: No masses, JVD, or carotid bruits noted. Lungs: No respiratory distress. Symmetric chest movement. Bilaterally clear to auscultation. No wheezing, rales, or rhonchi. Cardiac: Regular rate. Normal S1 and S2. No other murmurs, rubs, or gallops noted. Abdomen: Soft, nontender, nondistended. No organomegaly. Normal active bowel sounds x 4 quadrants. Extremities: No edema, clubbing, or cyanosis. +2 pulses noted throughout. There is bruising noted to the right groin access site, but the are is soft to palpation and free of bleeding or hematoma formation. Neuro: Cranial nerves II-XII are grossly intact. No focal deficits identified. Laboratory Tests 05/20/25 17:15 05/21/25 03:57 Assessment: -ACS-STEMI: Culprit lesion: 100% thrombotic occlusion in the mid RCA s/p successful PCI with PTCA, mechanical aspiration thrombectomy, and overlapping TRUNG placement (XSP 4.0x15 mm, 4.0x15 mm, 4.0x38 mm) in the proximal-mid RCA done on 05/20/2025 -Residual nonobstructive CAD (LAD, Ramus) identified on LHC/coronary angiogram done on 05/20/2025 -Intraprocedural NSVT, frequent PVCs, and junctional bradycardia, resolved post PCI -Leukocytosis -Tobacco abuse (cigarettes and vaping) Plan: 1. ACS-STEMI: Culprit lesion: 100% thrombotic occlusion in the mid RCA s/p successful PCI with PTCA, mechanical aspiration thrombectomy, and overlapping TRUNG placement (XSP 4.0x15 mm, 4.0x15 mm, 4.0x38 mm) in the proximal-mid RCA done on 05/20/2025 -HS troponin I peak: 04536 -In order to optimize medical therapy, we will start the patient on metoprolol succinate 12.5 mg daily. In addition, we will transition the patient from ticagrelor to prasugrel 10 mg daily in order to promote medication compliance, and he will continue on aspirin 81 mg daily and atorvastatin 40 mg QHS. The patient will remain on DAPT for a minimum of 1 year as per ACS guidelines. -A 2D echocardiogram has been ordered to assess the patient's systolic/diastolic function and for any wall motion abnormalities. This case was discussed with my Supervising Physician, Dr. Lazarus Webster, and the above mentioned plan was formulated and agreed upon. -Progress note written by Tesha Cardenas, MSN, BUSINESS INTELLIGENCE DEVELOPER, AGACNP-BC TESHA CARDENAS NP May 21, 2025 10:32
--- NOTE | 2025-05-21 13:24 | HMCSR ---
APPROVED REPORT EXAM: Two-dimensional and M-mode echocardiogram with Doppler and color Doppler. INDICATION ICD: ST-elevation MS 2D Dimensions RVDd3.5 cmLVEF(%)53.4 (>50%)LVED Vol(simp.)85.0 mL IVSd0.7 (0.7-1.1cm)FS(%)28 %LVES Vol(simp.)45.0 mL LVDd5.0 (3.8-5.6cm)LA (2D)2.8 (1.6-4.0cm)LVEF(%, simp.)48 % PWd0.8 (0.7-1.1cm)Ao Root(2D)2.6 (2.0-3.7cm)LA ESV INDEX (BP)16.58 mL/m2 LVDs3.6 (2.5-4.0cm)LVOT diam2.0 (1.8-2.4cm) IVC diam1.1 cm Deformation Strain Apical 4-16.1 % Apical 2-16.1 % Apical 3-18.3 % Global Strain-16.9 % M-Mode Dimensions EPSS0.7 cm LA (MM)3.0 (1.6-4.0cm) Ao Root(MM)2.4 (2.0-3.7cm) Aortic Valve AoV Vmax1.5 m/Kemal Peak GR8.6 mmHgLVOT Vmax1.0 m/s AoV VTI0.3 mAo Mean GR3.9 mmHgLVOT VTI0.15 m HORTENCIA (VMAX)2.00 cm2AVA (VTI) 1.7 cm2 Mitral Valve MV E Vmax52.9 cm/sDECEL Rwrd476 ms MV A Vmax45.0 cm/sP 1/2 T95 ms E/A ratio1.2MVA (PHT)2.3 cm2 TDI E/E' Medial5.4E/E' Lateral4.0 Medial E' Peak V9.86 cm/sLateral E' Peak V13.28 cm/s Left Ventricle The left ventricle is normal size. Basal septum is hypokinetic. There is normal left ventricular wall thickness. LVEF is 50-55%. The left ventricular diastolic function is normal. Right Ventricle The right ventricle is normal size. The right ventricular systolic function is normal. Atria The left atrium size is normal. The right atrium size is normal. Aortic Valve The aortic valve is normal in structure. No aortic regurgitation is present. There is no aortic valvu lar stenosis. Mitral Valve The mitral valve leaflets are mildly thickened. Mitral regurgitation is trace. There is no mitral sorin ve stenosis. Tricuspid Valve The tricuspid valve is normal in structure. There is no tricuspid valve regurgitation noted. Pulmonic Valve The pulmonary valve is normal in structure. There is no pulmonic valvular regurgitation. Great Vessels The aortic root is normal in size. The IVC is normal in size and collapses >50% with inspiration. Pericardium There is no pericardial effusion. Other Information Quality : GoodRhythm : NSR Conclusion Left ventricular systolic function is low normal. LVEF is 50-55%. Basal septum is hypokinetic. The left ventricular diastolic function is normal. The mitral valve leaflets are mildly thickened. Mitral regurgitation is trace.
--- NOTE | 2025-05-22 02:58 | HMCIMG ---
EXAM: CR Chest, single view. CLINICAL HISTORY: To evaluate the cardiopulmonary process. COMPARISON: None provided. FINDINGS: The lungs show no infiltrate or other acute findings. No pleural effusion or pneumothorax. The cardiomediastinal silhouette is within normal limits. No acute osseous abnormality. IMPRESSION: No acute cardiopulmonary pathology is evident. /[place]
[2025-05-22 03:00] VITALS: BP 115/68; PULSE 71; RESP 18; TEMP 98.2
[2025-05-22 08:32] VITALS: BP 102/56; PULSE 80; RESP 16; TEMP 98.6
--- NOTE | 2025-05-22 08:32 | PN ---
[facility] PROGRESS NOTE Date of Service: May 22, 2025 Time of Service: 08:30 SUBJECTIVE: [ ] S/p coronary angiogram, PCI with balloon angioplasty, mechanical aspiration thrombectomy, IVUS assessment, and TRUNG placement in the proximal and mid RCA by Dr. Webster 05/20/2505/21 Today on bedside evaluation patient was found awake alert and oriented x 3. The power chart reviewed, vital signs, laboratory tests, imaging test and medications have been reviewed. Vital signs are stable, white count at 14.6, BMP is stable. AST at 359. 2D echo showing low-normal systolic function at 50- 55%. 05/22 seen and examined. this morning's labs are pending. Vitals are stable bp 115/68, satting 100% on room air. No incidents reported overnight. Medically cleared for discharge. REVIEW OF SYSTEMS CONSTITUTIONAL: Denies fevers, chills, or night sweats. No unintentional weight loss reported. NEUROLOGICAL: Denies headache, amaurosis fugax, motor weakness, sensory def icit, vertigo/spinning sensation, gait abnormalities, or tremors. ENT: No hearing loss, otalgia, otorrhea, rhinitis, rhinorrhea, hoarseness, or sore throat. CARDIOVASCULAR: Positive for chest pain. Denied any orthopnea, PND , shortness of breath PULMONARY: Denies any shortness of breath, cough, phlegm/sputum, hemoptysis, pleuritic chest pain. SLEEP: Denies morning headaches, daytime somnolence or napping. Denies difficulty falling asleep, staying asleep, waking from sleep. Denies knowledge of snoring. GASTROINTESTINAL: Denies any type of dysphagia to either liquids or solids. Denies nausea, vomiting, pyrosis, early satiety, abdominal pain, diarrhea, constipation, or changes in stool consistency or caliber. Denies coffee-ground emesis, hematemesis, hematochezia, or melanotic stools. GENITOURINARY: Denies frequency, urgency, nocturia, hematuria or incontinence (Storage/Irritative symptoms.) Low urinary stream, straining to void, urinary intermittency or hesitancy, splitting of the voiding stream, terminal dribbling. ENDOCRINOLOGIC: Denies polyuria, polydipsia, polyphagia or heat/cold intolerances. HEMATOLOGIC: Denies thrombophilia/previous clots, or coagulopathy/bleeding disorders. ONCOLOGIC: Denies personal history of malignancy. DERMATOLOGIC: Denies rashes or pruritus. PSYCHIATRIC: Denies any suicidal or homicidal ideation. Denies hallucinations. PHYSICAL EXAM GENERAL APPEARANCE: The patient is awake, alert, and oriented, in no acute cardiopulmonary distress. NEUROLOGICAL: Cranial nerves II-XII grossly intact. Motor is 5/5 in bilateral upper and lower extremities proximal to distal. No sensory deficits. HEENT: Face is symmetric. Pupils are equal and reactive. Extraocular movements are intact. NECK: Supple. No JVD. No thyromegaly. No submental, submandibular, pre- /postauricular, occipital or supraclavicular lymphadenopathy. CHEST: Normal chest expansion. No Telemetry. LUNGS: Absence of any rales, rhonchi or any wheezing. CARDIOVASCULAR: Regular. S1 and S2 normal. No appreciable rubs, murmurs or gallops. ABDOMEN: Soft, nontender, and nondistended. There is no rebound, voluntary guarding, or rigidity. : Deferred. No Kennedy. EXTREMITIES: Non-edematous and not cyanotic. No clubbing. Good capillary refill. SKIN: No skin breakdown. Vital Signs (last 8hr) Date Time Temp Pulse Resp B/P (MAP) Pulse Ox O2 Delivery O2 Flow Rate FiO2 05/22/25 03:00 98.2 71 18 115/68 100 Room Air LABS: Laboratory: Test 05/21/25 03:57 05/20/25 17:15 05/20/25 15:08 Range/Units White Blood Count 14.6 H 4.8-10.8 K/uL Red Blood Count 4.52 4.50-6.20 MIL/uL Hemoglobin 14.5 14.0-18.0 g/dL Hematocrit 41.2 L 42-54 % Mean Corpuscular Volume 91.2 79-99 fL Mean Corpuscular Hemoglobin 32.1 27.0-33.0 pg Mean Corpuscular Hemoglobin Concent 35.2 32.0-36.0 g/dL Red Cell Distribution Width 13.4 11.0-15.5 % Platelet Count 197 130-400 K/uL Mean Platelet Volume 10.7 H 7.5-10.5 fL Nucleated Red Blood Cells 0.0 0.0-0.19 % Sodium Level 141 136-145 mmol/L Potassium Level 3.8 3.5-5.1 mmol/L Chloride Level 105 101-111 mmol/L Carbon Dioxide Level 23 21-32 mmol/L Blood Urea Nitrogen 11 7-18 mg/dL Creatinine 0.5 0.5-1.3 mg/dL Glomerular Filtration Rate Calc 123 >90 mL/min Random Glucose 115 H 70-105 mg/dL Total Calcium 8.3 L 8.5-10.1 mg/dL Magnesium Level 1.60 L 1.80-2.40 mg/dL Total Bilirubin 0.7 0.2-1.0 mg/dL Aspartate Amino Transf (AST/SGOT) 359 H 10-37 U/L Alanine Aminotransferase (ALT/SGPT) 68 12-78 U/L Alkaline Phosphatase 62 50-136 U/L Troponin I High Sensitivity 99318 *H 4-75 ng/L Total Protein 6.4 6.0-8.3 g/dL Albumin 3.4 L 3.5-5.0 g/dL Triglycerides Level 65 30-200 mg/dL Cholesterol Level 155 <200 mg/dL LDL Cholesterol 100 H 0-99 mg/dL HDL Cholesterol 47 29-71 mg/dL Thyroid Stimulating Hormone (TSH) 1.80 # 0.36-3.74 uIU/mL Immature Granulocyte % (Auto) 0.3 0-1 % Neutrophils (%) (Auto) 88.3 H 40.0-77.0 % Lymphocytes (%) (Auto) 7.7 L 21.0-51.0 % Monocytes (%) (Auto) 3.4 3.0-13.0 % Eosinophils (%) (Auto) 0.1 0.0-8.0 % Basophils (%) (Auto) 0.2 0.0-5.0 % Neutrophils # (Auto) 12.1 H 1.8-7.7 K/uL Lymphocytes # (Auto) 1.1 1.0-4.8 K/uL Monocytes # (Auto) 0.5 0.1-1.0 K/uL Eosinophils # (Auto) 0.02 0.00-0.70 K/uL Basophils # (Auto) 0.03 0.00-0.20 K/uL Absolute Immature Granulocyte (auto 0.04 0-1 K/uL White Cell Morphology Comment See comments Prothrombin Time 10.4 9.6-11.6 SEC Prothromb Time International Ratio 0.98 0.85-1.15 Activated Partial Thromboplast Time 41.7 H 26.3-35.5 SEC Hemoglobin A1c 5.7 4.0-6.0 % Estimated Average Glucose (eAG) 117 70-126 mg/dL Activated Clotting Time 236 H 100-180 SEC Current Medications Medications (Trade) Dose Ordered Sig/Harriett Route PRN Reason Start Time Stop Time Status Last Admin Dose Admin Aspirin (Aspirin 81mg Ec Tab) 81 mg DAILY PO 05/21/25 09:00 06/20/25 08:59 05/21/25 08:32 81 MG Atorvastatin Calcium (LIPItor 40MG) 40 mg HS PO 05/20/25 21:00 06/19/25 20:59 05/21/25 20:47 40 MG Eptifibatide 100 ml @ 11 mls/hr XCHG SIGX IV 05/20/25 17:45 05/20/25 15:59 DC Eptifibatide 100 ml @ 0 mls/hr PROTOCOL IV 05/20/25 17:45 05/21/25 09:02 DC 05/21/25 07:04 10 MLS/HR Famotidine (Pepcid 20mg Vial) 20 mg BID IV 05/20/25 21:00 06/19/25 20:59 05/21/25 20:47 20 MG Hydralazine HCl (APRESOLine 20MG INJ) 10 mg Q6H PRN IV ADMINISTER FOR SBP > 180 05/20/25 17:00 06/19/25 16:59 Magnesium Sulfate 50 ml @ 0 mls/hr PROTOCOL PRN IV hypomagnesemia 05/20/25 17:00 06/19/25 16:59 05/21/25 08:30 25 MLS/HR Metoprolol Succinate (TopROL XL) 12.5 mg DAILY PO 05/21/25 13:00 06/20/25 12:59 05/21/25 13:41 12.5 MG Nicotine (Nicoderm) 7 mg DAILY TD 05/21/25 09:00 06/20/25 08:59 Potassium Chloride 100 ml @ 100 mls/hr AD PRN IV POTASSIUM PROTOCOL 05/20/25 17:00 06/19/25 16:59 Potassium Chloride (K-Dur/Klor-Con 20meq) 20 meq AD PRN PO POTASSIUM PROTOCOL 05/20/25 17:00 06/19/25 16:59 05/21/25 18:41 20 MEQ Potassium Chloride (KCl 10% Elixir 20meq/15ml) 20 meq AD PRN PO POTASSIUM PROTOCOL 05/20/25 17:00 06/19/25 16:59 Prasugrel (Effient 10mg) 10 mg DAILY PO 05/22/25 09:00 06/21/25 08:59 Sodium Chloride 1,000 ml @ 100 mls/hr Q10H IV 05/20/25 15:30 05/20/25 19:29 DC 05/20/25 17:43 100 MLS/HR Ticagrelor (BRILinta) 90 mg BID PO 05/20/25 21:00 05/21/25 23:00 DC 05/21/25 20:47 90 MG DIAGNOSTICS / RADIOLOGY: [ ] ASSESSMENT: STEMI status post heart catheterization with 100% thrombotic occlusion in the mid RCA and underwent balloon angioplasty, mechanical aspiration thrombectomy, administration of Integrilin with stent placement in the proximal and mid RCA. 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 Hyperlipidemia Tobacco abuse Leukocytosis likely in setting of STEMI PLAN: -patient to continue with admission in ICU, currently in room 216 -in reference to STEMI. continue on aspirin and Brilinta. -continue Toprol 12.5 mg p.o. daily -continue prasugrel 10 mg p.o. daily -Continue aspirin 81 mg p.o. daily -Continue Lipitor 40 mg p.o. at bedtime -reviewed echocardiogram -patient was counseled regarding smoking cessation. Patient will be started on nicotine patch -check CBC, TSH, BNP, A1c -Pending chest x-ray -we will closely monitor for any fevers. If febrile, patient will be started on antibiotics -further orders per hospitalization course -Continue current medical therapy -following cardiology's recommendations. -PRN Treatment - Add when necessary meds for nausea, vomiting, pain, constipation, insomnia. -DVT/GI prophylaxis- Continue Lovenox and famotidine at current doses. -Full CODE STATUS This document was generated in part using voice recognition software, occasional wrong word or sound alike substitutions may have occurred due to the inherent limitations of voice recognition software. Read the chart carefully and recognize using context, where the substitutions have occurred. Although every effort was made to edit the content, dancing teacher and typing errors may occur This case was discussed with Dr. Robins and above plan was formulated ATTESTATION BY PHYSICIAN I have seen and examined the patient. I reviewed the documentation, medical decision making, and treatment plan as noted by the mid-level provider above. I agree with the findings and plan of care. Asha Robins MD, [facility] May 22, 2025 08:32
[2025-05-22 08:57] LABS: IMMATURE GRANULOCYTE ABSOLUTE 0.04 K/uL (0-1); NUCLEATED RED BLOOD CELLS 0.0 % (0.0-0.19); PLATELET COUNT (AUTO) 192 K/uL (130-400); RED BLOOD CELL COUNT(AUTO) 4.60 MIL/uL (4.50-6.20); RED CELL DISTRIBUTION WIDTH 13.7 % (11.0-15.5); WHITE BLOOD COUNT (AUTO) 8.9 K/uL (4.8-10.8)
[2025-05-22 09:05] LABS: CREATININE 0.7 mg/dL (0.5-1.3); GLOMERULAR FILTR. RATE CALC 112.0 mL/min (>90); GLUCOSE,RANDOM 127.0 mg/dL (70-105); SODIUM SERUM 142.0 mmol/L (136-145); UREA NITROGEN, BLOOD 14.0 mg/dL (7-18)
[2025-05-22] MEDS: PRASUGREL HCL 10 MG TABLET PO SCH (10:05)
--- NOTE | 2025-05-22 11:10 | PN ---
Vitals/Labs Vital Signs Date Time Temp Pulse Resp B/P (MAP) Pulse Ox O2 Delivery O2 Flow Rate FiO2 05/22/25 08:32 98.6 80 16 102/56 96 Room Air 05/21/25 19:54 0 21 Laboratory Tests 05/22/25 08:39 CARYN CARDENAS [employer] INSPECT[employer] May 22, 2025 11:10
[2025-05-22 12:00] VITALS: BP 102/58; PULSE 74; RESP 16; TEMP 97.9
--- NOTE | 2025-05-22 13:39 | DS ---
Discharge Summary Hospital Course Summary: S/p coronary angiogram, PCI with balloon angioplasty, mechanical aspiration thrombectomy, IVUS assessment, and TRUNG placement in the proximal and mid RCA by Dr. Webster 05/20/2505/21 Today on bedside evaluation patient was found awake alert and oriented x 3. The power chart reviewed, vital signs, laboratory tests, imaging test and medications have been reviewed. Vital signs are stable, white count at 14.6, BMP is stable. AST at 359. 2D echo showing low-normal systolic function at 50- 55%. 05/22 seen and examined. Vitals are stable bp 115/68, satting 100% on room air. Leukocytosis resolved, BMP is stable. No complaints of chest pain, shortness of breath or palpitations. Ambulating as tolerated. No incidents reported overnight. From medical standpoint patient is stable and cleared for discharge. Sliver Lap Machine Tender(s): Cardiology Dr. Webster Procedure(s): S/p coordinated angiogram, PCI with balloon angioplasty, mechanical aspiration thrombectomy, IVUS assessment, and TRUNG placement in the proximal and mid RCA by Dr. Webster on 05/20/2025 Assessment/Plan: ASSESSMENT: STEMI status post heart catheterization with 100% thrombotic occlusion in the mid RCA and underwent balloon angioplasty, mechanical aspiration thrombectomy, a dministration of Integrilin with stent placement in the proximal and mid RCA. 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 Hyperlipidemia Tobacco abuse Leukocytosis likely in setting of STEMI PLAN: -patient to continue with admission in ICU, currently in room 216 -in reference to STEMI. continue on aspirin and Brilinta. -continue Toprol 12.5 mg p.o. daily -continue prasugrel 10 mg p.o. daily -Continue aspirin 81 mg p.o. daily -Continue Lipitor 40 mg p.o. at bedtime -reviewed echocardiogram -patient was counseled regarding smoking cessation. Patient will be started on nicotine patch -check CBC, TSH, BNP, A1c -Pending chest x-ray -we will closely monitor for any fevers. If febrile, patient will be started on antibiotics -further orders per hospitalization course -Continue current medical therapy -following cardiology's recommendations. -PRN Treatment - Add when necessary meds for nausea, vomiting, pain, constipation, insomnia. -DVT/GI prophylaxis- Continue Lovenox and famotidine at current doses. -Full CODE STATUS This document was generated in part using voice recognition software, occasional wrong word or sound alike substitutions may have occurred due to the inherent limitations of voice recognition software. Read the chart carefully and recognize using context, where the substitutions have occurred. Although every effort was made to edit the content, electrical and instrument technician and typing errors may occur This case was discussed with Dr. Robins and above plan was formulated ATTESTATION BY PHYSICIAN I have seen and examined the patient. I reviewed the documentation, medical decision making, and treatment plan as noted by the mid-level provider above. I agree with the findings and plan of care. Asha Robins MD Discharge Instructions: Okay to discharge home. Continue taking cardiac medications as recommended by Cardiology team. This case was discussed with Dr. Robins and above plan was formulated ATTESTATION BY PHYSICIAN I have seen and examined the patient. I reviewed the documentation, medical decision making, and treatment plan as noted by the mid-level provider above. I agree with the findings and plan of care. Asha Robins MD Home Medications: No Active Prescriptions or Reported Meds Time spent arranging discharge: 31-60 minutes YUSEF LÓPEZ [facility] May 22, 2025 13:39
[2025-05-22] MEDS ORDERED: ATOR40TA69 PO (13:45)
[2025-05-22] MEDS ORDERED: ASPI-1443 PO (13:45)
[2025-05-22] MEDS ORDERED: METO25TA3 PO (13:45)
[2025-05-22] MEDS ORDERED: PRAS10TA9 PO (13:45)
== END 2025-05-22 16:30 | disposition home or self-care (01) | DRG 322 ==
LOC: EDH 13:34 → 2CH 13:35 → UNDOADMIN 16:20 → 2DH 05-21 20:15
PROVIDERS: ADMIT Internal Medicine; ATTEND Internal Medicine
PROC: 027036Z Dilation of Coronary Artery, One Artery with Three Drug-eluting Intraluminal Devices, Percutaneous Approach (ICD-10-PCS; principal; 2025-05-20)
PROC: 03CY3ZZ Extirpation of Matter from Upper Artery, Percutaneous Approach (ICD-10-PCS; 2025-05-20)
PROC: B241ZZ3 Ultrasonography of Multiple Coronary Arteries, Intravascular (ICD-10-PCS; 2025-05-20)
PROC: 4A023N7 Measurement of Cardiac Sampling and Pressure, Left Heart, Percutaneous Approach (ICD-10-PCS; 2025-05-20)
PROC: B2111ZZ Fluoroscopy of Multiple Coronary Arteries using Low Osmolar Contrast (ICD-10-PCS; 2025-05-20)
DX: I21.19 ST elevation (STEMI) myocardial infarction involving other coronary artery of inferior wall (principal); I47.20 Ventricular tachycardia, unspecified; E78.5 Hyperlipidemia, unspecified; F17.210 Nicotine dependence, cigarettes, uncomplicated; E11.9 Type 2 diabetes mellitus without complications; I25.10 Atherosclerotic heart disease of native coronary artery without angina pectoris; I10 Essential (primary) hypertension; I49.3 Ventricular premature depolarization; Z71.6 Tobacco abuse counseling; I25.2 Old myocardial infarction
CPT/HCPCS: 36415; 71045; 80048; 80053; 80061; 83036; 83735; 84443; 84484; 85025; 85027; 85347; 85610; 85730; 92973; 92978; 93005; 93306; 93356; 93454; 93571; 99156; 99157; C1760; C1887; C1894; C9606; G0378; J0461; J1265; J1327; J1644; J2250; J3010; J3475; J3490; Q9967; C1725; C1753; C1769; C1874; Q9965